=== PATIENT | female | born 1950 | race Caucasian/White ===

== ENCOUNTER 2019-12-29 20:48 | Emergency (ER) | payer MEDICARE, OTHER ==
[~2019-12-29] VITALS: Ht 160 cm; Wt 96.8 kg
--- NOTE | 2019-12-29 21:04 | ED Lower Extremity ---
General Chief Complaint: Lower Extremity Stated Complaint: FELL,KNEE PAIN/SWELLING Source: patient Exam Limitations: no limitations History of Present Illness Date Seen by Provider: Dec 29, 2019 Time Seen by Provider: 08:57 Initial Comments 69 y/o female presents w c/o R knee pain 2 to a fall just DENSITOMETRIST. Was walking in a parking lot and tripped over a bumper block. Denies other pain or injury. States all of her weight came down on her R knee. Denies previous injury or problems related to her knees Onset: just prior to arrival Allergies and Home Medications Allergies Coded Allergies: Sulfa (Sulfonamide Antibiotics) (Verified Allergy, Unknown, 12/29/19) iodine (Verified Allergy, Unknown, 12/29/19) levofloxacin (Verified Allergy, Unknown, 12/29/19) Home Medications Hydrocodone/Acetaminophen 1 Each Tablet, 1 EACH PO Q4H Prescribed by: JOSELITO RIVAS on 12/29/19 8798 Patient Home Medication List Home Medication List Reviewed: Yes Review of Systems Constitutional: no symptoms reported; No dizziness, No fever, No malaise, No weakness Respiratory: No cough, No short of breath Cardiovascular: No chest pain, No palpitations, No syncope Musculoskeletal: No back pain; joint pain (R knee); No joint swelling, No neck pain Skin: No change in color, No lesions, No lumps, No rash Psychiatric/Neurological: Denies Numbness, Denies Paresthesia, Denies Weakness Past Tqdumzr-Slkwba-[id number] Hx Past Med/Social Hx: Reviewed Nursing Past Med/Soc Hx Patient Social History Recent Foreign Travel: No Contact w/Someone Who Travel: No Physical Exam Vital Signs Vital Signs - First Documented 12/29/19 20:56 Temp 36.4 Pulse 86 Resp 16 B/P (MAP) 146/75 (98) Pulse Ox 95 O2 Delivery Room Air Capillary Refill : Height, Weight, BMI Height: '" Weight: lbs. oz. kg; BMI Method: General Appearance: WD/WN, no apparent distress Back: normal inspection, no CVA tenderness, no vertebral tenderness Hips: bilateral hip non-tender, bilateral hip normal inspection, bilateral hip normal range of motion, bilateral hip no evidence of injury Legs: bilateral leg non-tender, bilateral leg normal inspection, bilateral leg normal range of motion, bilateral leg no evidence of injury Knees: bilateral knee normal inspection; right knee bone tenderness, right knee joint effusion (minimal), right knee pain, right knee soft tissue tenderness, right knee swelling (minimal) Ankles: bilateral ankle non-tender, bilateral ankle normal inspection, bilateral ankle normal range of motion, bilateral ankle no evidence of injury Feet: bilateral foot non-tender, bilateral foot normal inspection, bilateral foot normal range of motion, bilateral foot no evidence of injury Neurologic/Tendon: normal motor functions, normal tendon functions, responds to pain Neurologic/Psychiatric: no motor/sensory deficits, alert Skin: normal color, warm/dry Progress/Results/Core Measures Results/Orders My Orders Orders - LELESTJOSELITO CRISTINA DO Knee 3 View Right (12/29/19 20:59) Rx-Hydrocodone/Apap 5-325 Mg (Rx-Vicodin (12/29/19 22:00) Vital Signs/I&O 12/29/19 20:56 Temp 36.4 Pulse 86 Resp 16 B/P (MAP) 146/75 (98) Pulse Ox 95 O2 Delivery Room Air Progress Progress Note : Progress Note patient placed in knee immobilizer and explained caution and care until Ortho follow-up. Advised to avoid wt bearing. Crutches as needed and as able to avoid full wt bearing. Pt reluctant to take pain medication, but given. Encouraged to Ice daily to prevent further swelling. Diagnostic Imaging Diagonstic Imaging: Xray Comments ADMIT DATE: 12/29/19/ER FS Draft Date of Exam:12/29/19 KNEE 3 VIEW RIGHT INDICATION: Right knee pain. EXAMINATION: Three views of the right knee were obtained. FINDINGS: There is a fracture of the intercondylar eminence of the proximal tibia. There is a small suprapatellar joint effusion. IMPRESSION: Fracture through the intercondylar eminence of the proximal tibia. Dictated on workstation # [id number] Dict: 12/29/192125 Trans: 12/29/192127 [facility] [id number] Interpreted by: JOEL CARTWRIGHT MD Electronically signed by: Departure Impression Primary Impression: Fracture of tibia Qualified Codes: S82.114A - Nondisplaced fracture of right tibial spine, initial encounter for closed fracture Disposition: 01 HOME, SELF-CARE Condition: Stable Departure-Patient Inst. Decision time for Depature: 21:54 Referrals: NO,LOCAL PHYSICIAN (PCP) Primary Care Physician ALMA GARCIA MD Patient Instructions: Tibial Plateau Fracture (DC) Add. Discharge Instructions: Call Dr Garcia's office on Wednesday morning regarding your knee fracture. In the meantime, wear your knee immobilizer at all times (except to bath and get dressed). You should also avoid full weight bearing. Apply ice for 20 minutes, three times daily. All discharge instructions reviewed with patient and/or family. Voiced understanding. Scripts Hydrocodone/Acetaminophen (Hydrocodone-Acetamin 5-325 mg) 1 Each Tablet 1 EACH PO Q4H for Abdominal Pain, #12 TAB Prov: JOSELITO RIVAS DO 12/29/19 JOSELITO RIVAS DO Dec 29, 2019 21:04
--- NOTE | 2019-12-29 21:28 | Diagnostic Imaging Report ---
INDICATION: Right knee pain. EXAMINATION: Three views of the right knee were obtained. FINDINGS: There is a fracture of the intercondylar eminence of the proximal tibia. There is a small suprapatellar joint effusion. IMPRESSION: Fracture through the intercondylar eminence of the proximal tibia. Dictated by: Dictated on workstation # [id number]
[2019-12-29] MEDS ORDERED: ACHD5005 PO (21:53)
[2019-12-29] MEDS ORDERED: RX-HYDROCODONE/APAP 5/325 MG #4 TAB PK PO ONE ×2 (21:59→22:00)
[2019-12-29 22:18] VITALS: BP 146/75
== END 2019-12-29 22:18 | disposition home or self-care (01) ==
LOC: ER FS 20:49
DX: S82.191A Other fracture of upper end of right tibia, initial encounter for closed fracture (principal); Z88.2 Allergy status to sulfonamides; Z88.1 Allergy status to other antibiotic agents; Z91.041 Radiographic dye allergy status; W01.0XXA Fall on same level from slipping, tripping and stumbling without subsequent striking against object, initial encounter
CPT/HCPCS: 73562; 99283; L1830